=== PATIENT | female | born 1990 | race Two or more races ===

== ENCOUNTER 2020-06-29 11:15 | Emergency (ER) | payer SELFPAY ==
[~2020-06-29] VITALS: Ht 167.6 cm; Wt 56.8 kg
[2020-06-29 11:30] VITALS: BP 122/76
--- NOTE | 2020-06-29 11:53 | PHYS DOC ---
Past Medical History Past Medical History: Other Additional Past Medical Histor: [id number] Past Surgical History: No Surgical History Smoking Status: Never Smoker Alcohol Use: None General Adult EDM: Chief Complaint: SORE THROAT HPI: HPI: Patient is a 30 year old female who presents with sore throat, fever, bodyaches x 2 days. Took Tylenol this morning at 5:00 and her headache and fever went away. Patient states she is eating and drinking appropriately. Past medical history is Covid on [employer]. Patient denies chest pain, cough, shortness of breath, loss of taste or smell, urinary symptoms, abdominal pain, nausea, vomiting, diarrhea, dizziness, nasal congestion. She rates her sore throat pain a 7 out of 10. Review of Systems: Review of Systems: Constitutional: + fever or chills. [] Eyes: Denies change in visual acuity. [] HENT: Denies nasal congestion. + sore throat. [] Respiratory: Denies cough or shortness of breath. [] Cardiovascular: Denies chest pain or edema. [] GI: Denies abdominal pain, nausea, vomiting, bloody stools or diarrhea. [] : Denies dysuria. [] Musculoskeletal: Denies back pain or joint pain. +body aches [] Integument: Denies rash. [] Neurologic: + intermittent headache, denies focal weakness or sensory changes. [] Endocrine: Denies polyuria or polydipsia. [] Lymphatic: Denies swollen glands. [] Psychiatric: Denies depression or anxiety. [] Heart Score: Risk Factors: Risk Factors: DM, Current or recent (<one month) smoker, HTN, HLP, family history of CAD, obesity. Risk Scores: Score 0 - 3: 2.5% MACE over next 6 weeks - Discharge Home Score 4 - 6: 20.3% MACE over next 6 weeks - Admit for Clinical Observation Score 7 - 10: 72.7% MACE over next 6 weeks - Early Invasive Strategies Allergies: Allergies: Allergies Coded Allergies Type Severity Reaction Last Updated Verified No Known Drug Allergies 06/29/20 No Physical Exam: PE: Constitutional: Well developed, well nourished, no acute distress, non-toxic appearance. [] HENT: Normocephalic, atraumatic, bilateral external ears normal, oropharynx moist, no oral exudates, nose normal. Tonsil 2+ with exudates and redness[] Eyes: PERRLA, EOMI, conjunctiva normal, no discharge. [] Neck: Normal range of motion, no tenderness, supple, no stridor. [] Cardiovascular:Heart rate regular rhythm, no murmur [] Lungs & Thorax: Bilateral breath sounds clear to auscultation [] Abdomen: Bowel sounds normal, soft, no tenderness, no masses, no pulsatile masses. [] Skin: Warm, dry, no erythema, no rash. [] Back: No tenderness, no CVA tenderness. [] Extremities: No tenderness, no cyanosis, no clubbing, ROM intact, no edema. [] Neurologic: Alert and oriented X 3, normal motor function, normal sensory function, no focal deficits noted. [] Psychologic: Affect normal, judgement normal, mood normal. [] Current Patient Data: Vital Signs: Vital Signs Date Time Temp Pulse Resp B/P (MAP) Pulse Ox O2 Delivery O2 Flow Rate FiO2 06/29/20 11:30 98.5 80 16 122/76 (91) 100 Room Air 98.5 EKG: EKG: [] Radiology/Procedures: Radiology/Procedures: [] Course & Med Decision Making: Course & Med Decision Making Pertinent Labs and Imaging studies reviewed. (See chart for details) See HPI. Alert and oriented x4. Ambulatory with a steady gait. Skin pink warm and dry. Afebrile. Speaks in full clear sentences. Uvula midline. Tonsils are 2+ swollen with exudates and redness. Patient is given dexamethasone in the ED. She will be sent home on amoxicillin and a Medrol Dosepak. [] Gabrielle Disclaimer: Gabrielle Disclaimer: This electronic medical record was generated, in whole or in part, using a voice recognition dictation system. Departure Departure Impression: Primary Impression: Sore throat Disposition: 01 DC HOME SELF CARE/HOMELESS Condition: STABLE Patient Instructions: Sore Throat Additional Instructions: Take ibuprofen for your pain and fever. Take medication as prescribed and with food. Follow-up with a primary care provider. If you get no better and symptoms worsen or you cannot swallow any water or food return to the ER. Scripts Methylprednisolone (MEDROL) 4 Mg Tab.ds.pk 1 PKG PO UD, #1 PKG Prov: CHIRAG ROBERTSON BACK W[employer]ER 06/29/20 Amoxicillin (AMOXICILLIN) 500 Mg Capsule 1 CAP PO BID, #20 CAP Prov: CHIRAG ROBERTSON APRN 06/29/20 CHIRAG ROBERTSON APRN Jun 29, 2020 11:53
[2020-06-29] MEDS ORDERED: DEXAMETHASONE 4 MG TABLET PO ONE (12:00)
[2020-06-29] MEDS ORDERED: AMOX500C PO (12:16)
[2020-06-29] MEDS ORDERED: METH4TAB2 PO (12:16)
== END 2020-06-29 12:26 | disposition home or self-care (01) ==
LOC: ER 11:15
DX: J02.9 Acute pharyngitis, unspecified (principal); R50.9 Fever, unspecified; R51.9 Headache, unspecified; M54.9 Dorsalgia, unspecified
CPT/HCPCS: 87070; 87880; 99283